=== PATIENT | male | born 1945 | race Caucasian/White ===

== ENCOUNTER → 2019-04-16 | Outpatient (CLI) | payer BC ==
[2019-04-16 14:18] LABS: Percent Saturation 38.7 % (20.0-50.0)
== END | disposition home or self-care (01) ==
LOC: LAB SHORT 12:35 → LAB 12:35
PROVIDERS: Internal Medicine Hematology & Oncology
DX: D51.8 Other vitamin B12 deficiency anemias (principal); R53.83 Other fatigue
CPT/HCPCS: 82607; 82746; 83540; 83550

== ENCOUNTER → 2020-08-03 | Outpatient (CLI) | payer BC | END | disposition home or self-care (01) | LOC: PLD 15:52 → LAB SHORT 15:52 | DX: D48.5 Neoplasm of uncertain behavior of skin (principal) | CPT/HCPCS: 88305 ==

== ENCOUNTER → 2020-12-10 | Outpatient (CLI) | payer BC | END | disposition home or self-care (01) | LOC: LAB SHORT 12:51 | DX: D48.5 Neoplasm of uncertain behavior of skin (principal) | CPT/HCPCS: 88305 ==

== ENCOUNTER → 2022-06-09 | Outpatient (CLI) | payer BC | END | disposition home or self-care (01) | LOC: LAB 11:35 → LAB SHORT 11:35 | DX: D48.5 Neoplasm of uncertain behavior of skin (principal) | CPT/HCPCS: 88305 ==

== ENCOUNTER 2024-02-10 10:41 | Emergency (ER) | payer BC ==
[~2024-02-10] VITALS: Ht 172.7 cm; Wt 67.6 kg
[2024-02-10 10:47] VITALS: BP 155/83
[2024-02-10] MEDS ORDERED: VYZULTA5 ML OP (10:51)
[2024-02-10] MEDS ORDERED: TEMAZEPAM1511 PO (10:51)
[2024-02-10 11:12] LABS: BASOPHILS ABSOLUTE AUTO 0.03 K/mm3 (0.00-0.23); BASOPHILS PERCENT AUTO 1 % (0-2); EOSINOPHILS ABSOLUTE AUTO 0.26 K/mm3 (0.00-0.68); EOSINOPHILS PERCENT AUTO 4 % (0-6); Hematocrit 38.4 % (37.0-53.0); Hemoglobin 13.3 g/dL (13.5-17.5); IMMATURE GRAN ABSOLUTE AUTO 0.02 K/mm3 (0.00-0.10); IMMATURE GRAN PERCENT AUTO 0 % (0-1); LYMPHOCYTES ABSOLUTE AUTO 0.91 K/mm3 (0.84-5.20); LYMPHOCYTES PERCENT AUTO 15 % (21-46); MONOCYTES ABSOLUTE AUTO 0.43 K/mm3 (0.16-1.47); MONOCYTES PERCENT AUTO 7 % (4-13); Mean Corpuscular HGB Conc 34.6 g/dL (31.5-36.5); Mean Corpuscular Volume 95 fL (80-100); Mean Platelet Volume 10.5 fL (9.1-12.4); NEUTROPHILS ABSOLUTE AUTO 4.62 K/mm3 (1.96-9.15); NEUTROPHILS PERCENT AUTO 74 % (41-73); Platelet Count 265 K/mm3 (150-400); RDW Coefficient Variation 14.8 % (11.7-14.2); RDW Standard Deviation 52.2 fL (35.1-46.3); Red Blood Cell Count 4.03 M/mm3 (4.30-5.90); White Blood Cell Count 6.27 K/mm3 (4.00-11.30)
[2024-02-10 11:31] LABS: Ethanol (Alcohol), Blood, Med <3 mg/dL; Salicylate <1.7 mg/dL (2.8-20.0)
[2024-02-10 11:37] LABS: Alanine Aminotransfer (ALT/SGP 17 U/L (12-78); Albumin, Blood 3.6 g/dL (3.4-5.0); Albumin/Globulin Ratio 1.1 (0.8-1.8); Alk Phos 101 U/L (50-136); Anion Gap 7 mmol/L (3-11); Aspartate Aminotrans (AST/SGOT 14 U/L (12-37); Bilirubin, Total 1.2 mg/dL (0.1-1.0); Blood Urea Nitrogen 16 mg/dL (8-24); Bun/Creatinine Ratio 18.7 (12.0-20.0); CO2, Blood 27 mmol/L (21-32); Calcium, Blood 10.8 mg/dL (8.5-10.1); Chloride, Blood 110 mmol/L (98-108); Creatinine, Blood 0.86 mg/dL (0.60-1.20); Globulin, Blood 3.3 g/dL (2.2-4.0); Glomerular Filtration Rate 89 (60-); Glucose, Blood 113 mg/dL (70-99); Potassium, Blood 4.1 mmol/L (3.5-5.5); Sodium, Blood 140 mmol/L (136-145); Total Protein, Blood 6.9 g/dL (6.4-8.2)
[2024-02-10 11:38] LABS: Acetaminophen, Random <2.0 ug/mL (10.0-30.0)
[2024-02-10 12:37] LABS: U Amphetamine Screen Not Detected; U Barbituate Screen Not Detected; U Methamphetamine Screen Not Detected
[2024-02-10 12:38] LABS: U Benzodiazapine Screen DETECTED; U Buprenorphine Screen Not Detected; U Cannabinoids Screen Not Detected; U Cocaine Screen Not Detected; U Methadone Screen Not Detected; U Opiates Screen Not Detected; U Oxycodone Screen Not Detected; U Phencyclidine Screen Not Detected
[2024-02-10] MEDS ORDERED: OLANZapine 10 MG Vial IM PRN (12:40)
[2024-02-10] MEDS ORDERED: OLANZapine 10 MG Tab PO ONE (13:35)
== END 2024-02-10 15:20 | disposition other institution (70) ==
LOC: ER 10:41
PROVIDERS: Emergency Medicine
DX: R45.851 Suicidal ideations (principal); E03.9 Hypothyroidism, unspecified; Z88.0 Allergy status to penicillin; Z88.1 Allergy status to other antibiotic agents; Z79.899 Other long term (current) drug therapy
CPT/HCPCS: 80053; 83970; 84443; 85025; 99285-25; G0378; G0480

== ENCOUNTER 2024-02-10 13:55 | Inpatient (IN) | payer MEDICARE, BC ==
[~2024-02-10] VITALS: Wt 68.4 kg
[~2024-02-10 13:55] MED LIST: TEMAZEPAM1511 PO; VYZULTA5 ML OP
[2024-02-10] MEDS ORDERED: Haloperidol 1 MG Tab PO PRN (14:45)
[2024-02-10] MEDS ORDERED: OLANZapine ODT 10 MG Tab MM PRN (14:45)
[2024-02-10] MEDS ORDERED: LORazepam 0.5 MG Tab PO PRN ×2 (14:45)
[2024-02-10] MEDS ORDERED: Haloperidol 5 MG Tab PO PRN ×3 (14:45→14:50)
[2024-02-10] MEDS ORDERED: QUEtiapine Fumarate 25 MG Tab PO PRN (14:45)
[2024-02-10] MEDS ORDERED: RisperiDONE 0.25 MG Tab PO PRN (14:45)
[2024-02-10] MEDS ORDERED: DiphenhydrAMINE HCl 50 MG Cap PO PRN ×3 (14:50)
[2024-02-10] MEDS ORDERED: OLANZapine 10 MG Vial IM PRN (14:50)
[2024-02-10] MEDS ORDERED: LORazepam 2 MG Tab PO PRN ×3 (14:50→14:55)
[2024-02-10] MEDS ORDERED: Temazepam 15 MG Cap PO PRN (14:55)
[2024-02-10 17:37] VITALS: BP 131/78
--- NOTE | 2024-02-10 17:55 | NUR ---
PT ADMIT SKIN ASSESSMENT COMPLETED W/ BORIS BATRES, VISIBLE REDENED SKIN BREAKDOWN TO COCCYX AREA RATED STAGE 2 ULCER. PT REPORTS DOCTORS W/ SALINA OIL TO AREA AND USE OF CUSHION FOR EXTRA PADDING. PT INFORMED OF SELF CATH FOR BPH SINCE MAY AND TO BRING IN PERSONAL SUPPLIES WELL PT EYE DROPS. PT ADMITTED FROM ER FOR SI/ DEPRESSION. PT VERY PLEASANT ALTHOUGH VISIBLY SLOW TO COMMUNICATE AND TAKES A FEW SECONDS TO RESPOND IF THINKING OF WORDING TO USE. PT CONTINUES TO REPORT VERY TIRED AND SURPRISED HE IS STILL AWAKE. PT REPORTS HX OF THYROID ISSUES AND HAS NOT BEEN TAKING MEDICATIONS R/T UPCOMING TESTING. PT ALSO REPORTS STOPPED TAKING TEMAZAPAM YESTERDAY FOR UNSPECIFIED REASONS OTHER THAN STILL DOES NOT SLEEP WELL. PT REPORTED LOSS OF HIS MOTHER A COUPLE MONTHS AGO THAT OCCUPIED HIS/ WIFES TIME CARE GIVERS. IN TO SEE PT DURING DINNER, AND BRING PT MEDS/ MEDICAL SUPPLIES.
[2024-02-10] MEDS ORDERED: Acetaminophen 325 MG TABLET PO PRN (18:35)
[2024-02-10] MEDS ORDERED: Magnesium Hydroxide Conc 10 ML UDC PO PRN (18:40)
[2024-02-11] MEDS ORDERED: Docusate Sodium/Senna 1 Tab PO SCH (09:00)
[2024-02-11] MEDS ORDERED: TROLAMINE SALICYLATE 10% CREAM 141 GM TUBE TOP PRN (10:45)
[2024-02-11] MEDS ORDERED: Lidocaine 4% 1 Patch TOP PRN (13:15)
--- NOTE | 2024-02-11 14:11 | NUR ---
EDNA FROM [facility] IN TO SEE PATIENT AT THIS TIME
--- NOTE | 2024-02-11 17:17 | NUR ---
PT AA&Ox4. CALM AND COOPERATIVE WITH CARE. PT DENIES SI AT THIS TIME. HE REPORTS THAT HE JUST WANTS "TO GET BACK TO MY NORMAL SELF" HE STATES THAT LACK OF SLEEP IS HIS MAIN ISSUE. INTO SEE PT AND SPOKE WITH DR. BURNS REGARDING MEDICATIONS. BROUGHT IN GREEN DRINK AND CATHETERS FOR PT. PT SELF CATHS WITHOUT ISSUE. MOM DC'd, MIRALAX BID ORDERED THIS IS WHAT PT TAKES AT HOME. LIDOCAINE PATCH ORDERED FOR BACK PAIN. PT HAS BARRIER CREAM FOR STAGE 2 PI. PINK EGGCRATE PLACED ON MATTRESS. HE DENIES ANY QUESTIONS OR CONCERNS AT THIS TIME.
[2024-02-11] MEDS ORDERED: QUEtiapine Fumarate 300 MG Tab PO SCH (21:00)
[2024-02-11] MEDS ORDERED: Misc. Opth BOTHEYES SCH (21:00)
[2024-02-11] MEDS ORDERED: Insulin Glargine-Yfgn 100 Unit/mL 3 ML SYR SC SCH (21:00)
[2024-02-11 21:11] VITALS: BP 137/86
[2024-02-11 21:41] VITALS: BP 118/77
[2024-02-11] MEDS ORDERED: Ibuprofen 400 MG Tab PO ONE (23:00)
--- NOTE | 2024-02-12 08:06 | NUR ---
MORNING ASSESSMENT: WHEN ASKED ABOUT ANY FEELINGS OF SI HE REPLIED, "THE WAY I FEEL I WOULD LIKE TO BE OUT OF MY BODY...LIKE WITH DIGNITY. PHYSICAL DRIVES THE MENTAL. i DON'T WANT TO HURT ANYONE ELSE OR MYSELF. HE COMPLAINED OF INSOMNIA LAST NIGHT AND THAT HE HAS A HISTORY OF SLEEP PROBLEMS. PT COMPLAINED OF BEING COLD, "THIS IS NOT CONDUSIVE TO HEALING...i'VE BEEN COLD SINCE i GOT HERE!" HE REPORTED THAT WHEN HE TOOK THE SEROQUEL HE DOSED OFF AND THEN WOKE UP WITH "MY HEART BEATING OUT OF MY CHEST." HE DENIED AVH.
[2024-02-12 08:49] VITALS: BP 118/87
[2024-02-12] MEDS ORDERED: buPROPion HCL 150 MG TAB.SR.12H PO SCH (09:00)
[2024-02-12] MEDS ORDERED: Polyethylene Glycol 3350 17 gm PO SCH ×2 (09:00)
[2024-02-12 14:53] LABS: Albumin, Blood 3.7 g/dL (3.4-5.0); Anion Gap 8 mmol/L (3-11); Blood Urea Nitrogen 29 mg/dL (8-24); Bun/Creatinine Ratio 26.4 (12.0-20.0); CO2, Blood 30 mmol/L (21-32); Calcium, Blood 11.4 mg/dL (8.5-10.1); Chloride, Blood 108 mmol/L (98-108); Glomerular Filtration Rate 69 (60-); Glucose, Blood 118 mg/dL (70-99); Phosphorus, Blood 2.8 mg/dL (2.5-4.9); Potassium, Blood 4.4 mmol/L (3.5-5.5); Sodium, Blood 142 mmol/L (136-145)
[2024-02-12] MEDS ORDERED: LATA.005SO BOTHEYES (17:21)
[2024-02-12] MEDS ORDERED: Melatonin 5 MG Tablet PO PRN (19:55)
[2024-02-12] MEDS ORDERED: NS 1,000 ML IV SCH (19:55)
[2024-02-12] MEDS ORDERED: Temazepam 15 MG Cap PO PRN (20:00)
[2024-02-12] MEDS ORDERED: THYR60 PO (20:36)
[2024-02-12] MEDS ORDERED: LORazepam 1 MG Tab PO ONE (20:50)
[2024-02-13] MEDS ORDERED: Enoxaparin 40 MG/0.4 ML SYR SC SCH (09:00)
== END 2024-02-12 20:52 | disposition short-term general hospital (02) | DRG 885 ==
LOC: BHU 13:55 → MEDS 13:55 → BHU 15:22 → MEDS 02-12 19:36 → BHU 02-12 20:52
PROVIDERS: Family Medicine; ADMIT Student in an Organized Health Care Education/Training Program
DX: F32.2 Major depressive disorder, single episode, severe without psychotic features (principal); R45.851 Suicidal ideations; F32.A Depression, unspecified; G47.00 Insomnia, unspecified; E03.9 Hypothyroidism, unspecified
CPT/HCPCS: 36415; 80069; 82306; 83970; A9270; J1815

== ENCOUNTER 2024-02-12 18:27 | Inpatient (IN) | payer MEDICARE, BC ==
[~2024-02-12] VITALS: Wt 68.4 kg
[~2024-02-12 18:27] MED LIST changes: +LATA.005SO BOTHEYES
[2024-02-12] MEDS ORDERED: THYR60 PO (20:36)
[2024-02-12] MEDS ORDERED: Polyethylene Glycol 3350 17 gm PO PRN (21:10)
[2024-02-12] MEDS ORDERED: NS 1,000 ML IV SCH (21:10)
[2024-02-12] MEDS ORDERED: Acetaminophen 325 MG TABLET PO PRN (21:10)
[2024-02-12] MEDS ORDERED: LORazepam 1 MG Tab PO PRN (21:10)
[2024-02-12 21:18] VITALS: BP 137/95
--- NOTE | 2024-02-13 03:57 | NUR ---
SHIFT SUMMARY ADMITTED FOR HYPERPARATHYROID AND HYPERCALCEMIA. FULL CODE. MODERATE SI PRECAUTIONS FOR RECENT SI. DIRECT ADMIT FROM U. NS INFUSING ORDERED. ADA DIET. A&O X3-4, INDEPENDENT. HOME THYROID MEDICATIION WAS BEING HELD FOR A SCHEDULED THYROID UPTAKE SCAN FOR January. ENDOCRINOLOGY CONSULT ORDERED, WE WILL ASK DAY RN TO CALL HIS OFFICE IN THE MORNING. PSYCHIATRY CONSULT IS DR. BURNS. THIS PATIENT DOES SELF-CATHETERIZE APPROXIMATELY 4X'S/DAY. I DO NOTE SOME ANXIETY FROM BOTH HIM AND HIS SPOUSE REGARDING MEDICATIONS. PRN ATIVAN ORDERED ONE TIME ONLY FOR HELP WITH ANXIETY AND SLEEPLESSNESS, THIS WAS EFFECTIVE.
[2024-02-13 04:17] VITALS: BP 126/78
[2024-02-13 04:33] LABS: BASOPHILS ABSOLUTE AUTO 0.02 K/mm3 (0.00-0.23); BASOPHILS PERCENT AUTO 0 % (0-2); EOSINOPHILS ABSOLUTE AUTO 0.32 K/mm3 (0.00-0.68); EOSINOPHILS PERCENT AUTO 7 % (0-6); Hematocrit 32.9 % (37.0-53.0); Hemoglobin 11.2 g/dL (13.5-17.5); IMMATURE GRAN ABSOLUTE AUTO 0.02 K/mm3 (0.00-0.10); IMMATURE GRAN PERCENT AUTO 0 % (0-1); LYMPHOCYTES ABSOLUTE AUTO 1.13 K/mm3 (0.84-5.20); LYMPHOCYTES PERCENT AUTO 24 % (21-46); MONOCYTES ABSOLUTE AUTO 0.42 K/mm3 (0.16-1.47); MONOCYTES PERCENT AUTO 9 % (4-13); Mean Corpuscular HGB 32.8 pg (26.0-34.0); Mean Corpuscular Volume 97 fL (80-100); NEUTROPHILS ABSOLUTE AUTO 2.72 K/mm3 (1.96-9.15); NEUTROPHILS PERCENT AUTO 59 % (41-73); Platelet Count 210 K/mm3 (150-400); RDW Coefficient Variation 15.1 % (11.7-14.2); RDW Standard Deviation 53.7 fL (35.1-46.3); Red Blood Cell Count 3.41 M/mm3 (4.30-5.90); White Blood Cell Count 4.63 K/mm3 (4.00-11.30)
[2024-02-13 04:52] LABS: Bun/Creatinine Ratio 28.2 (12.0-20.0); Calcium, Blood 10.5 mg/dL (8.5-10.1); Creatinine, Blood 0.92 mg/dL (0.60-1.20); Potassium, Blood 3.9 mmol/L (3.5-5.5)
--- NOTE | 2024-02-13 06:57 | NUR ---
pt transported to medical floor rm [id number] to nurse Crabtree
[2024-02-13 07:26] VITALS: BP 131/82
[2024-02-13] MEDS ORDERED: Enoxaparin 40 MG/0.4 ML SYR SC SCH (09:00)
[2024-02-13] MEDS ORDERED: Docusate Sodium 100 MG Cap PO SCH (09:00)
--- NOTE | 2024-02-13 12:20 | NUR ---
NOTIFIED DR SCHUSTER OF PT STATES NOT SI
[2024-02-13 14:03] VITALS: BP 117/70
--- NOTE | 2024-02-13 17:56 | NUR ---
PT SOME ANXIOUS TODAY. A/O X3 PLEASANT COOP WITH CARE. DR MYERS CONSULTED FOR ENDOCRENOLOGY. NOT SEEN OF YET. PT INDEPENDANT IN ROOM. ABLE TO MAKE NEEDS KNOWN. DR BURNS GAVE ORDERS TO D/C SI PRECAUTIONS TODAY. WE ARE CONTINUING 2 MD HOLD. PT CONTINUES TO AMBULATE SELF TO BATHROOM TO SELF CATH. NO OTHER NEW CONCERNS NOTED. AT BEDSIDE. BED IN LOW POSITION, CALL LITE IN REACH, CALLS APPROP
--- NOTE | 2024-02-13 18:09 | NUR ---
SPOKE TO DR BURNS RE SI HOLD. HE GAVE ORDERS TO CANCEL SI HOLD. DONE
[2024-02-13 20:58] VITALS: BP 143/82
[2024-02-13] MEDS ORDERED: ClonazePAM 1 MG Tab PO SCH (21:00)
[2024-02-14 03:12] VITALS: BP 123/69
--- NOTE | 2024-02-14 04:12 | NUR ---
SHIFT SUMMARY PT. CONTINUES ON 2MD INVOLUNTARY HOLD, INITIATED 02/10/24. PT.IS CLOSE OBSERVED BY 1:1 SITTER IN THE HOSPITAL ROOM FOR SAFETY. AT HS,PT.C/O INSOMNIA,"UNABLE TO GET SLEEP/REST FOR DAYS," PER PT.REPORT.HS SCHEDULED KLONOPIN 2MG ADMINISTERED ORDERED. PT. RESTING COMFORTABLY T/O THIS SHIFT. RR EVEN, UNLABORED.NO OTHER COMPLAINTS OR C/O RESTLESS LEGS DURING THIS SHIFT. NS INFUSING 100ML/HR ORDERED. NO ACUTE EVENTS NOTED/REPORTED DURING THIS SHIFT.BED AT THE LOWEST POSITION, CALL LIGHT IN REACH. WILL HANDOFF TO THE INCOMING SHIFT NURSE.
[2024-02-14 06:15] LABS: Bun/Creatinine Ratio 22.2 (12.0-20.0); Calcium, Blood 9.7 mg/dL (8.5-10.1); Creatinine, Blood 0.9 mg/dL (0.60-1.20); Potassium, Blood 4.1 mmol/L (3.5-5.5)
[2024-02-14 07:20] VITALS: BP 118/67
[2024-02-14 15:37] VITALS: BP 115/75
--- NOTE | 2024-02-14 18:33 | NUR ---
SHIFT SUMMARY PT A&OX4, VSS, AMB IND, TOLERATING PO, VOIDING, AND DENIED PAIN. NS CONT TO INFUSE @ 100 MLS/HR. ROUNDED ON PT AND REMOVED MD HOLD. SIGNED RELEASE FORM IN CHART. PT'S INQUIRED ABOUT PT'S GREEN ELIXER BLEND THAT PHARMACY IS HOLDING. PT'S WANTED PT TO BE ABLE TO TAKE, BUT UPON DISCUSSION W/ PROVIDER AND PHARMACY, PT TO NOT TAKE ELIXER DUE TO CALCIUM CONTENT. PT'S AND PT AWARE AND REPORTED UNDERSTANDING. NO ACUTE CHANGES THIS SHIFT. CALL LIGHT WITHIN REACH AND PT ABLET TO MAKE NEEDS KNOWN.
[2024-02-14 19:17] VITALS: BP 130/80
[2024-02-15 03:46] VITALS: BP 114/77
--- NOTE | 2024-02-15 04:32 | NUR ---
SHIFT SUMMARY PT IS A&O X4, ABLE TO MAKE HIS NEEDS KNOWN, AND INDEPENDENT IN THE ROOM. PT REPORTED TO THIS NURSE THAT PREVIOUS AIRBRUSH ARTIST TECHNICAL KLONIPIN 2MG MADE HIM "GROGGY" FOR YESTERDAY DURING THE DAYTIME. THIS NURSE SUGGESTED TO PT. TO SPEAK WITH THE PROVIDER AND MAYBE TRY 1MG/LOWER DOSE. PT REPORTED THE GROGGINESS TO THIS NURSE- AFTER HS MEDS ADMINISTERED DURING THIS SHIFT. NO ACUTE EVENTS DURING THIS SHIFT. BED AT THE LOWEST POSITION, CALL LIGHT IN REACH. WILL HANDOFF TO THE INCOMING SHIFT NURSE.
[2024-02-15 06:10] LABS: Bun/Creatinine Ratio 21.9 (12.0-20.0); Calcium, Blood 9.7 mg/dL (8.5-10.1); Creatinine, Blood 0.82 mg/dL (0.60-1.20)
[2024-02-15 07:15] VITALS: BP 116/67
[2024-02-15] MEDS ORDERED: CLON1 PO (12:30)
[2024-02-15] MEDS ORDERED: MIRALAX17 GM PO (12:31)
[2024-02-15] MEDS ORDERED: DOCU100 PO (12:31)
--- NOTE | 2024-02-15 14:50 | NUR ---
DISCHARGE NOTE PT DISCHARGED HOME AT APPROX 1420. PT PROVIDED W/ VERBAL AND WRITTEN INSTRUCTIONS AND REPORTED UNDERSTANDING. PT A&OX4, VSS, AMB IND, TOLERATING PO, VOIDING, AND DENIED PAIN. HARD SCRIPTS GIVEN, COPY IN CHART, REFERRAL FAXED TO , AND BELONGINGS WERE RETURNED INCLUDING HOME MED FROM PHARMACY. PT ESCOURTED OUT VIA W/C BY PT'S .
--- NOTE | 2024-02-15 16:24 | NUR ---
CLONAZEPAM RX AND REFERRAL SCRIPTS GIVEN TO PRIOR TO PATIENT LEAVING UNIT SO SHE CAN FILL RX WITHOUT PATIENT WAITING IN CAR. SUPERFOOD SUPPLEMENT ALSO GIVEN TO , ANN. ANN LEFT UNIT WITH SCRIPT AT 1320
== END 2024-02-15 14:44 | disposition home or self-care (01) | DRG 644 ==
LOC: MEDS 18:27 → ENPENDDIS 02-15 12:11 → MEDS 02-15 14:44
PROVIDERS: ADMIT Family Medicine
DX: E21.3 Hyperparathyroidism, unspecified (principal); F32.2 Major depressive disorder, single episode, severe without psychotic features; K59.00 Constipation, unspecified; E03.9 Hypothyroidism, unspecified; G47.00 Insomnia, unspecified; Z88.1 Allergy status to other antibiotic agents; Z88.8 Allergy status to other drugs, medicaments and biological substances; Z79.899 Other long term (current) drug therapy; Z87.891 Personal history of nicotine dependence; N40.1 Benign prostatic hyperplasia with lower urinary tract symptoms; R33.8 Other retention of urine
CPT/HCPCS: 36415; 80048; 85025; A9270; J1650; J7030

== ENCOUNTER → 2024-02-26 | Outpatient (CLI) | payer MEDICARE, BC ==
[~2024-02-26] MED LIST changes: +CLON1 PO; +DOCU100 PO; +Halcion0.25 MG PO; +MIRALAX17 GM PO; +REMERON30 M9 PO; +THYR60 PO; +VYZULTA5 ML BOTHEYES
[2024-02-26 20:08] LABS: Albumin, Blood 3.5 g/dL (3.4-5.0); Albumin/Globulin Ratio 1.2 (0.8-1.8); Bilirubin, Total 0.7 mg/dL (0.1-1.0); Calcium, Blood 10.5 mg/dL (8.5-10.1); Globulin, Blood 2.8 g/dL (2.2-4.0); Phosphorus, Blood 2.4 mg/dL (2.5-4.9); Potassium, Blood 4.6 mmol/L (3.5-5.5); Total Protein, Blood 6.3 g/dL (6.4-8.2)
== END | disposition home or self-care (01) ==
LOC: LAB 18:26 → LAB SHORT 18:26
PROVIDERS: Internal Medicine Hematology & Oncology
DX: E83.52 Hypercalcemia (principal)
CPT/HCPCS: 80053; 84100

== ENCOUNTER 2024-03-02 12:22 | Emergency (ER) | payer BC ==
[~2024-03-02] VITALS: Ht 172.7 cm; Wt 68.5 kg
[~2024-03-02 12:22] MED LIST changes: -Halcion0.25 MG PO; -REMERON30 M9 PO; -VYZULTA5 ML BOTHEYES
[2024-03-02 13:48] LABS: BASOPHILS ABSOLUTE AUTO 0.03 K/mm3 (0.00-0.23); BASOPHILS PERCENT AUTO 1 % (0-2); EOSINOPHILS ABSOLUTE AUTO 0.25 K/mm3 (0.00-0.68); EOSINOPHILS PERCENT AUTO 4 % (0-6); Hematocrit 37.7 % (37.0-53.0); Hemoglobin 12.7 g/dL (13.5-17.5); IMMATURE GRAN ABSOLUTE AUTO 0.01 K/mm3 (0.00-0.10); IMMATURE GRAN PERCENT AUTO 0 % (0-1); LYMPHOCYTES ABSOLUTE AUTO 0.84 K/mm3 (0.84-5.20); LYMPHOCYTES PERCENT AUTO 15 % (21-46); MONOCYTES ABSOLUTE AUTO 0.39 K/mm3 (0.16-1.47); MONOCYTES PERCENT AUTO 7 % (4-13); Mean Corpuscular HGB 32.3 pg (26.0-34.0); Mean Corpuscular HGB Conc 33.7 g/dL (31.5-36.5); Mean Corpuscular Volume 96 fL (80-100); Mean Platelet Volume 10.2 fL (9.1-12.4); NEUTROPHILS ABSOLUTE AUTO 4.12 K/mm3 (1.96-9.15); NEUTROPHILS PERCENT AUTO 73 % (41-73); Platelet Count 242 K/mm3 (150-400); RDW Coefficient Variation 14.8 % (11.7-14.2); RDW Standard Deviation 52.8 fL (35.1-46.3); Red Blood Cell Count 3.93 M/mm3 (4.30-5.90); White Blood Cell Count 5.64 K/mm3 (4.00-11.30)
[2024-03-02 14:11] LABS: Albumin, Blood 3.9 g/dL (3.4-5.0); Albumin/Globulin Ratio 1.2 (0.8-1.8); Bilirubin, Total 0.8 mg/dL (0.1-1.0); Bun/Creatinine Ratio 19.9 (12.0-20.0); Creatinine, Blood 0.81 mg/dL (0.60-1.20); Globulin, Blood 3.2 g/dL (2.2-4.0); Potassium, Blood 4.5 mmol/L (3.5-5.5); Total Protein, Blood 7.1 g/dL (6.4-8.2)
[2024-03-02] MEDS ORDERED: REMERON30 M9 PO (18:45)
[2024-03-02] MEDS ORDERED: VYZULTA5 ML BOTHEYES (18:49)
[2024-03-02] MEDS ORDERED: Halcion0.25 MG PO (19:38)
[2024-03-02 20:30] VITALS: BP 157/89
== END 2024-03-02 20:35 | disposition home or self-care (01) ==
LOC: ER 12:22
PROVIDERS: Student in an Organized Health Care Education/Training Program
DX: F51.04 Psychophysiologic insomnia (principal); Z88.0 Allergy status to penicillin; Z88.1 Allergy status to other antibiotic agents; Z88.8 Allergy status to other drugs, medicaments and biological substances; Z79.899 Other long term (current) drug therapy; E03.9 Hypothyroidism, unspecified
CPT/HCPCS: 80053; 85025; 99283; A9270

== ENCOUNTER 2024-05-25 10:39 | Emergency (ER) | payer OTHER ==
[~2024-05-25] VITALS: Ht 172.7 cm; Wt 68.0 kg
[~2024-05-25 10:39] MED LIST changes: +Halcion0.25 MG PO; +REMERON30 M9 PO; +VYZULTA5 ML BOTHEYES
[2024-05-25 10:54] VITALS: BP 122/73
[2024-05-25] MEDS ORDERED: FentaNYL Citrate 50 MCG/ML 2 ML Injection IM ONE (12:40)
== END 2024-05-25 14:38 | disposition home or self-care (01) ==
LOC: ER 10:39
DX: K40.90 Unilateral inguinal hernia, without obstruction or gangrene, not specified as recurrent (principal); E03.9 Hypothyroidism, unspecified; Z79.899 Other long term (current) drug therapy; Z88.0 Allergy status to penicillin; Z88.1 Allergy status to other antibiotic agents; Z88.5 Allergy status to narcotic agent
CPT/HCPCS: 76857; 96372; 99284-25; J3010

== ENCOUNTER 2024-06-18 11:06 | Emergency (ER) | payer OTHER ==
[~2024-06-18] VITALS: Ht 172.7 cm; Wt 67.1 kg
[2024-06-18 11:43] LABS: BASOPHILS ABSOLUTE AUTO 0.01 K/mm3 (0.00-0.23); BASOPHILS PERCENT AUTO 0 % (0-2); EOSINOPHILS ABSOLUTE AUTO 0.01 K/mm3 (0.00-0.68); EOSINOPHILS PERCENT AUTO 0 % (0-6); Hematocrit 29.8 % (37.0-53.0); Hemoglobin 10.2 g/dL (13.5-17.5); IMMATURE GRAN ABSOLUTE AUTO 0.01 K/mm3 (0.00-0.10); IMMATURE GRAN PERCENT AUTO 0 % (0-1); LYMPHOCYTES ABSOLUTE AUTO 0.48 K/mm3 (0.84-5.20); LYMPHOCYTES PERCENT AUTO 10 % (21-46); MONOCYTES PERCENT AUTO 8 % (4-13); Mean Corpuscular HGB 32.1 pg (26.0-34.0); Mean Corpuscular HGB Conc 34.2 g/dL (31.5-36.5); Mean Corpuscular Volume 94 fL (80-100); Mean Platelet Volume 10.3 fL (9.1-12.4); NEUTROPHILS ABSOLUTE AUTO 3.83 K/mm3 (1.96-9.15); NEUTROPHILS PERCENT AUTO 81 % (41-73); Platelet Count 166 K/mm3 (150-400); RDW Coefficient Variation 16.1 % (11.7-14.2); RDW Standard Deviation 55.6 fL (35.1-46.3); Red Blood Cell Count 3.18 M/mm3 (4.30-5.90); White Blood Cell Count 4.74 K/mm3 (4.00-11.30)
[2024-06-18 11:59] LABS: Albumin, Blood 3.2 g/dL (3.4-5.0); Albumin/Globulin Ratio 1.2 (0.8-1.8); Bilirubin, Total 0.8 mg/dL (0.1-1.0); Bun/Creatinine Ratio 20.9 (12.0-20.0); Calcium, Blood 7.9 mg/dL (8.5-10.1); Creatinine, Blood 0.91 mg/dL (0.60-1.20); Globulin, Blood 2.6 g/dL (2.2-4.0); Potassium, Blood 4.3 mmol/L (3.5-5.5); Total Protein, Blood 5.8 g/dL (6.4-8.2)
[2024-06-18 12:20] LABS: Influenza A, PCR NEGATIVE (NEGATIVE); Influenza B, PCR NEGATIVE (NEGATIVE); Resp Syncytial Virus, PCR NEGATIVE (NEGATIVE)
[2024-06-18 12:28] LABS: SARS-Cov-2 (COVID-19) PCR, MMC POSITIVE (NEGATIVE)
[2024-06-18 12:30] LABS: Source, Urine Straight Cath
[2024-06-18 12:38] LABS: Bilirubin, Urine Neg (Neg); Blood, Urine Neg (Neg); Glucose Qualitative, Urine Neg (Neg); Ketones, Urine Neg (Neg); Leukocyte Esterase, Urine 1+ (Neg); Nitrite, Urine Pos (Neg); Protein, Urine 1+ (Neg); Urobilinogen, Urine NORM (Normal)
[2024-06-18 13:04] LABS: Appearance, Urine Hazy (Clear); Color, Urine Yellow (P-Yellow)
[2024-06-18 13:05] LABS: Bacteria Mod /hpf; Red Blood Cells, Urine 0-2 /hpf (0-2); Squamous Epithelial Cells Rare /hpf (Few)
[2024-06-18] MEDS ORDERED: CefTRIAXone Sodium 1,000 MG in NS 50 ML IV ONE (13:45)
[2024-06-18] MEDS ORDERED: CEPH500 PO (14:26)
[2024-06-18 14:45] VITALS: BP 111/75
== END 2024-06-18 14:55 | disposition home or self-care (01) ==
LOC: ER 11:06
PROVIDERS: Emergency Medicine
DX: U07.1 COVID-19 (principal); N39.0 Urinary tract infection, site not specified; R55 Syncope and collapse; E03.9 Hypothyroidism, unspecified; Z79.899 Other long term (current) drug therapy; Z88.0 Allergy status to penicillin; Z88.5 Allergy status to narcotic agent
CPT/HCPCS: 0241U; 80053; 81001; 85025; 87077; 87086; 87186; 93005; 93010; 96365; 99285-25; J0696

== ENCOUNTER 2024-08-26 01:48 | Emergency (ER) | payer BC ==
[~2024-08-26] VITALS: Ht 172.7 cm; Wt 67.1 kg
[~2024-08-26 01:48] MED LIST changes: +CEPH500 PO
[2024-08-26 02:50] LABS: CORONAVIRUS COVID-19 AG Negative (NEGATIVE); INFLUENZA A AG Negative (NEGATIVE); INFLUENZA B AG Negative (NEGATIVE)
[2024-08-26 02:53] LABS: BASOPHILS ABSOLUTE AUTO 0.04 K/mm3 (0.00-0.23); BASOPHILS PERCENT AUTO 1 % (0-2); EOSINOPHILS PERCENT AUTO 4 % (0-6); Hemoglobin 12.7 g/dL (13.5-17.5); IMMATURE GRAN ABSOLUTE AUTO 0.02 K/mm3 (0.00-0.10); IMMATURE GRAN PERCENT AUTO 0 % (0-1); LYMPHOCYTES ABSOLUTE AUTO 1.29 K/mm3 (0.84-5.20); LYMPHOCYTES PERCENT AUTO 23 % (21-46); MONOCYTES ABSOLUTE AUTO 0.48 K/mm3 (0.16-1.47); MONOCYTES PERCENT AUTO 9 % (4-13); Mean Corpuscular HGB 32.5 pg (26.0-34.0); Mean Corpuscular HGB Conc 34.3 g/dL (31.5-36.5); Mean Corpuscular Volume 95 fL (80-100); NEUTROPHILS ABSOLUTE AUTO 3.54 K/mm3 (1.96-9.15); NEUTROPHILS PERCENT AUTO 64 % (41-73); Platelet Count 250 K/mm3 (150-400); RDW Coefficient Variation 16.2 % (11.7-14.2); RDW Standard Deviation 55.6 fL (35.1-46.3); Red Blood Cell Count 3.91 M/mm3 (4.30-5.90); White Blood Cell Count 5.57 K/mm3 (4.00-11.30)
[2024-08-26 03:05] LABS: Albumin, Blood 3.7 g/dL (3.4-5.0); Albumin/Globulin Ratio 1.2 (0.8-1.8); Bun/Creatinine Ratio 30.7 (12.0-20.0); Creatinine, Blood 0.98 mg/dL (0.60-1.20); Globulin, Blood 3.2 g/dL (2.2-4.0); Potassium, Blood 4.5 mmol/L (3.5-5.5); Total Protein, Blood 6.9 g/dL (6.4-8.2)
[2024-08-26 05:17] LABS: Source, Urine Straight Cath
[2024-08-26 05:26] LABS: Appearance, Urine Clear (Clear); Bilirubin, Urine Neg (Neg); Blood, Urine Neg (Neg); Color, Urine Yellow (P-Yellow); Glucose Qualitative, Urine Neg (Neg); Ketones, Urine Neg (Neg); Leukocyte Esterase, Urine Neg (Neg); Nitrite, Urine Neg (Neg); Protein, Urine Neg (Neg); Specific Gravity, Urine 1.015 (1.003-1.022); Urobilinogen, Urine NORM (Normal); pH, Urine 6.5 (5.0-8.0)
[2024-08-26 06:26] VITALS: BP 130/72
== END 2024-08-26 06:27 | disposition home or self-care (01) ==
LOC: ER 01:48
PROVIDERS: Emergency Medicine
DX: R23.2 Flushing (principal); E03.9 Hypothyroidism, unspecified; Z79.899 Other long term (current) drug therapy; Z88.0 Allergy status to penicillin; Z88.1 Allergy status to other antibiotic agents
CPT/HCPCS: 71045; 80053; 81003; 84484; 85025; 85379; 87428-QW; 93005; 93010; 99285-25

== ENCOUNTER 2025-01-06 16:43 | Emergency (ER) | payer OTHER ==
[~2025-01-06] VITALS: Ht 172.7 cm; Wt 68.0 kg
[2025-01-06 18:18] LABS: Source, Urine Clean Catch
[2025-01-06 18:23] LABS: Appearance, Urine Hazy (Clear); Bilirubin, Urine Neg (Neg); Blood, Urine Neg (Neg); Color, Urine Yellow (P-Yellow); Glucose Qualitative, Urine Neg (Neg); Ketones, Urine Neg (Neg); Leukocyte Esterase, Urine 1+ (Neg); Nitrite, Urine Neg (Neg); Protein, Urine 1+ (Neg); Urobilinogen, Urine NORM (Normal)
[2025-01-06 18:24] LABS: BASOPHILS ABSOLUTE AUTO 0.03 K/mm3 (0.00-0.23); BASOPHILS PERCENT AUTO 0 % (0-2); EOSINOPHILS ABSOLUTE AUTO 0.24 K/mm3 (0.00-0.68); EOSINOPHILS PERCENT AUTO 3 % (0-6); Hematocrit 36.3 % (37.0-53.0); Hemoglobin 12.2 g/dL (13.5-17.5); IMMATURE GRAN ABSOLUTE AUTO 0.03 K/mm3 (0.00-0.10); IMMATURE GRAN PERCENT AUTO 0 % (0-1); LYMPHOCYTES ABSOLUTE AUTO 1.09 K/mm3 (0.84-5.20); LYMPHOCYTES PERCENT AUTO 15 % (21-46); MONOCYTES ABSOLUTE AUTO 0.55 K/mm3 (0.16-1.47); MONOCYTES PERCENT AUTO 7 % (4-13); Mean Corpuscular HGB 31.8 pg (26.0-34.0); Mean Corpuscular HGB Conc 33.6 g/dL (31.5-36.5); Mean Corpuscular Volume 95 fL (80-100); Mean Platelet Volume 10.7 fL (9.1-12.4); NEUTROPHILS ABSOLUTE AUTO 5.45 K/mm3 (1.96-9.15); NEUTROPHILS PERCENT AUTO 74 % (41-73); Platelet Count 311 K/mm3 (150-400); RDW Coefficient Variation 13.9 % (11.7-14.2); RDW Standard Deviation 48.1 fL (35.1-46.3); Red Blood Cell Count 3.84 M/mm3 (4.30-5.90); White Blood Cell Count 7.39 K/mm3 (4.00-11.30)
[2025-01-06 18:33] LABS: Amorphous Light (0-Heavy); Bacteria Few /hpf; Red Blood Cells, Urine 0-2 /hpf (0-2); Squamous Epithelial Cells Few /hpf (Few)
[2025-01-06 19:17] LABS: Albumin, Blood 3.1 g/dL (3.4-5.0); Albumin/Globulin Ratio 0.9 (0.8-1.8); Bilirubin, Total 0.5 mg/dL (0.1-1.0); Bun/Creatinine Ratio 24.4 (12.0-20.0); Calcium, Blood 8.6 mg/dL (8.5-10.1); Creatinine, Blood 0.86 mg/dL (0.60-1.20); Globulin, Blood 3.6 g/dL (2.2-4.0); Potassium, Blood 4.1 mmol/L (3.5-5.5); Total Protein, Blood 6.7 g/dL (6.4-8.2)
[2025-01-06] MEDS ORDERED: NS 1,000 ML IV SCH (20:00)
[2025-01-06 21:30] VITALS: BP 142/80
== END 2025-01-06 23:30 | disposition home or self-care (01) ==
LOC: ER 16:43
PROVIDERS: Student in an Organized Health Care Education/Training Program
DX: F41.9 Anxiety disorder, unspecified (principal); E87.1 Hypo-osmolality and hyponatremia; E03.9 Hypothyroidism, unspecified; N40.0 Benign prostatic hyperplasia without lower urinary tract symptoms; Z88.0 Allergy status to penicillin; Z88.1 Allergy status to other antibiotic agents; Z88.8 Allergy status to other drugs, medicaments and biological substances; Z79.890 Hormone replacement therapy; Z79.899 Other long term (current) drug therapy
CPT/HCPCS: 71046; 71260; 80053; 81001; 84484; 85025; 85379; 87086; 93005; 93010; 96360; 99285-25; J7030; Q9967